=== PATIENT | male | born 1995 | race Caucasian/White ===

== ENCOUNTER 2019-04-28 20:00 | Emergency (ER) | payer OTHER ==
[2019-04-28] MEDS ORDERED: KETOROLAC 30 MG/ML INJ ONE (20:46)
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
[2019-04-28 23:03] VITALS: TEMP 98.2
[2019-04-28 23:06] VITALS: BP 131/70; O2SAT 98
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
== END 2019-04-28 22:41 | disposition home or self-care (01) ==
LOC: ER 20:00
DX: S02.2XXA Fracture of nasal bones, initial encounter for closed fracture (principal); S52.125A Nondisplaced fracture of head of left radius, initial encounter for closed fracture; Y04.2XXA Assault by strike against or bumped into by another person, initial encounter; Y93.89 Activity, other specified; Y92.149 Unspecified place in prison as the place of occurrence of the external cause
CPT/HCPCS: 70450; 70486; 72125; 76377; 96372; 99284